=== PATIENT | male | born 1945 | race Caucasian/White ===

== ENCOUNTER 2019-12-04 16:47 | Emergency (ER) | payer MEDICARE, BC, SELFPAY ==
[2019-12-04 16:10] VITALS: O2SAT 90
--- NOTE | 2019-12-04 16:10 | CT_ITS ---
WS: [id number] CT scan of the head, 12/04/2019 Clinical Data: Symptoms of Acute Stroke Comparison: None. DLP: 1668.57 mGy-cm All CT scans at [facility] use at least one of these dose optimization techniques: automat ed exposure control; mA and/or kV adjustment per patient size (includes targeted exams where dose is matched to clinical indication); or iterative reconstruction. Findings: The ventricular system is moderately dilated without shift. There is an old area of encephalomalacia in the left occipital lobe. No recent infarct or hemorrhage is seen. There are no abnormal intracereb ral masses. The cerebellum and brainstem are not remarkable. Bony windows of the skull and skull base show no fractures or erosions. The mastoid air cells, pricing intern al auditory canals, sella turcica, intraorbital contents, and paranasal sinuses are unremarkable. A n asogastric tube is in good position. CT/CT head wo con* [id number] Impression: 1. Moderate cerebral atrophy with small area of encephalomalacia in the left oc cipital lobe. 2. Negative for recent infarct or hemorrhage.
--- NOTE | 2019-12-04 16:11 | ED_ITS ---
Entered by Linda Calderon, acting as scribe for Brissa Grimes HPI - Neuro Symptoms/Deficit General: Chief Complaint: Neuro Symptoms/Deficit Stated Complaint: Unresponsive Source: EMS Mode of arrival: EMS Limitations: altered mental status History of Present Illness: HPI Narrative: 74 yo Male presents to ED with complaint of stroke like symptoms. Pt has left side weakness. Pt was seen on surveillance camera driving at 14:20 today and patient was parked in a parking lot. Pt was found at 15:10. Pt's family states that the patient takes a lot of Aspirin. Pt's family states that she thought the patient has been having TIAs around [place] and he was having slurring on the right side. Dr. Crooks is present with the patient in the CT suite. Onset (ago): hour(s) Last Observed Normal: 14:20 Timing confirmed by: other Location: left face, left arm and left leg History of same: No Quality: weak Relieving factors: none Exacerbating factors: none Context: sudden onset Review of Systems General: Reports: ROS unobtainable due to medical condition Neuro: Denies: weakness in extremities Physical Exam Const: EXAM LIMITATIONS: altered mental status GENERAL APPEARANCE: lethargic ORIENTATION/CONSCIOUSNESS: Yes lethargic HENMT: COMMON NORMALS: normocephalic, head/scalp atraumatic, hearing grossly normal bilaterally, external ears normal, EAC's normal, external nose normal and moist oral mucous membranes HEAD & SCALP: normal to inspection, normocephalic and atraumatic FACE & SINUS: normal facial exam and face symmetric NOSE: external nose normal and nares normal EXTERNAL EAR: Yes external ears normal EXTERNAL AUDITORY CANAL: EAC's normal MOUTH: oral and palatal mucosa normal and tongue normal Eye: SCLERA: sclerae normal CORNEA: Yes corneas normal Neck/C-Spine: COMMON NORMALS: full ROM, no lymphadenopathy, supple and no JVD GENERAL: Yes normal visual inspection and Yes trachea midline CERVICAL SPINE: Yes cervical ROM normal Chest: COMMONS NORMALS: inspection of chest normal and palpation of chest normal Resp: EFFORT & INSPECTION: Yes abnormal respiratory pattern, Yes labored and Yes uses accessory muscles AUSCULTATION: rhonchi Cardio: COMMON NORMALS: no JVD, regular rate, regular rhythm, S1 normal heart sound, S2 normal heart sound, no gallops, no clicks, no murmurs and no rub JUGULAR VENOUS DISTENTION: no JVD RATE: regular rate RHYTHM: regular rhythm HEART SOUNDS: S1 normal and S2 normal GI: COMMON NORMALS: soft to palpation, non-tender, no hepatosplenomegaly and no masses INSPECTION: Yes normal to inspection PALPATION: Yes soft and Yes no hepatosplenomegaly Back/Pelvis: COMMON NORMALS: thoracic and lumbar spine normal to inspection, no thoracic nor lumbar tenderness and thoraco-lumbar ROM normal Extremity: COMMON NORMALS: normal to inspection, full ROM, normal capillary refill, no joint enlargement, no clubbing, cyanosis or edema and no calf tenderness Neuro: SENSORIUM/ORIENTATION: Yes lethargic OTHER: NIH -reported as [address] Crooks Skin: COMMON NORMALS: no rashes or lesions noted, skin turgor normal, no jaundice, no petechiae and no mottling GENERAL SKIN EXAM: no rashes or lesions noted and turgor normal Procedures Intubation sedative: Etomidate Mg Given: 20 paralytic: Succinylcholine Mg Given: 150 Laryngoscope: Maxine ET Tube Size: 8 ET Tube Uncuffed: Yes Tube Secured Depth (cm): 22 Tube Secured Location: lips Tube Placement Confirmation: visualized tube passing through cords, equal breath sounds bilaterally, no breath sounds over epigastrium and confirmation by capnometry Patient Tolerated Procedure: well Intubation Complications: none Additional Comments: Chest x-ray confirms placement. Course Vital Signs: Vital signs: Vital Signs Pulse Rate 55 L 12/04/19 17:39 Respiratory Rate 18 12/04/19 17:39 Blood Pressure 129/87 12/04/19 17:39 Pulse Oximetry 99 12/04/19 17:39 MDM - Neuro Symptoms/Deficit MDM Narrative: Medical decision making narrative: The patient was seen and evaluated by Dr. Crooks almost immediately. She feels the patient's symptoms are secondary to a dense right MCA sign. She discussed and consented for TPA with the family. Once blood pressure was adequately controlled the patient was given TPA. He was intubated to protect his airway as he was having difficulty breathing with sonorous respirations. Patient was transferred by ground ambulance as no air ambulance services were flying. Patient is going to go directly to the interventional radiology suite to see Dr. Sprague and he was the accepting doctor for Dr. Crooks. Lab Data: Labs: Lab Results 12/04/19 12/04/19 12/04/19 Range/Units 16:20 16:20 16:20 WBC 11.2 H (4.0-10.0) 10^3/ uL RBC 5.42 H (4.1-5.3) 10^6/u L Hgb 15.6 (11.7-16.6) g/dL Hct 45.8 (42.0-52.0) % MCV 84.5 (80-94) fL MCH 28.8 (28.0-34.0) pg MCHC 34.1 (30.0-36.0) g/dL RDW 13.8 (12.1-15.1) % Plt Count 204 (130-400) 10^3/c mm MPV 9.2 (7.4-10.4) fL Neut % (Auto) 74.1 % Lymph % (Auto) 18.1 % [place] % (Auto) 6.2 % Eos % (Auto) 0.8 % Baso % (Auto) 0.4 % Neut # (Auto) 8.3 H (1.8-7.7) 10^3/u L Lymph # (Auto) 2.0 (0.8-4.8) 10^3/u L [place] # (Auto) 0.7 (0.2-0.9) 10^3/u L Eos # (Auto) 0.1 (0.0-0.8) 10^3/u L Baso # (Auto) 0.1 (0.0-0.1) 10^3/u L Nucleated RBC % (a uto) 0 % Nucleated RBCs # 0.0 /100WBC PT 13.90 H (10.5-13.3) SECO NDS INR 1.04 (0.8-1.2) APTT 31.0 (23.9-36.7) SECO NDS Sodium 136 (136-145) mmol/L Potassium 3.2 L (3.5-5.1) mmol/L Chloride 97 L (98-107) mmol/L Carbon Dioxide 24 (22-29) mmol/L Anion Gap 18.2 (5-19) BUN 20 (8-23) mg/dL Creatinine 1.0 (0.7-1.2) mg/dL Glucose 306 H (65-115) mg/dL POC Glucose (70-110) mg/dL Calcium 9.4 (8.5-10.5) mg/dL Total Bilirubin 0.6 (0.15-1.2) mg/dL AST 21 (0-40) U/L ALT 21 (0-41) U/L Alkaline Phosphata se 97 (40-130) IU/L Total Protein 7.5 (6.6-8.7) g/dL Albumin 4.1 (3.5-5.2) g/dL Globulin 3.4 (1.3-4.6) g/dL 12/04/19 Range/Units 16:20 WBC (4.0-10.0) 10^3/ uL RBC (4.1-5.3) 10^6/u L Hgb (11.7-16.6) g/dL Hct (42.0-52.0) % MCV (80-94) fL MCH (28.0-34.0) pg MCHC (30.0-36.0) g/dL RDW (12.1-15.1) % Plt Count (130-400) 10^3/c mm MPV (7.4-10.4) fL Neut % (Auto) % Lymph % (Auto) % [place] % (Auto) % Eos % (Auto) % Baso % (Auto) % Neut # (Auto) (1.8-7.7) 10^3/u L Lymph # (Auto) (0.8-4.8) 10^3/u L [place] # (Auto) (0.2-0.9) 10^3/u L Eos # (Auto) (0.0-0.8) 10^3/u L Baso # (Auto) (0.0-0.1) 10^3/u L Nucleated RBC % (a uto) % Nucleated RBCs # /100WBC PT (10.5-13.3) SECO NDS INR (0.8-1.2) APTT (23.9-36.7) SECO NDS Sodium (136-145) mmol/L Potassium (3.5-5.1) mmol/L Chloride (98-107) mmol/L Carbon Dioxide (22-29) mmol/L Anion Gap (5-19) BUN (8-23) mg/dL Creatinine (0.7-1.2) mg/dL Glucose (65-115) mg/dL POC Glucose 283 (70-110) mg/dL Calcium (8.5-10.5) mg/dL Total Bilirubin (0.15-1.2) mg/dL AST (0-40) U/L ALT (0-41) U/L Alkaline Phosphata se (40-130) IU/L Total Protein (6.6-8.7) g/dL Albumin (3.5-5.2) g/dL Globulin (1.3-4.6) g/dL Imaging Data^: CT Head: Radiologist's impression: [place] [address] CT Scan Report Signed Patient: Ryan Howell #: [id number] : 4Acct#:[id number] Age/Sex: 74 / MADM Date: Loc: [facility]/Bed: Attending Dr: Ordering Provider/Ordering MD: Brissa Grimes DO Date of Service: 12/04/19 Procedure(s): CT head wo con* [id number] Accession Number(s): [id number] Report Number: [id number] WS: [id number] CT scan of the head, 12/04/2019 Clinical Data: Symptoms of Acute Stroke Comparison: None. DLP: 1668.57 mGy-cm All CT scans at [facility] use at least one of these dose optimization techniques: automated exposure control; mA and/or kV adjustment per patient size (includes targeted exams where dose is matched to clinical indication); or iterative reconstruction. Findings: The ventricular system is moderately dilated without shift. There is an old area of encephalomalacia in the left occipital lobe. No recent infarct or hemorrhage is seen. There are no abnormal intracerebral masses. The cerebellum and brainstem are not remarkable. Bony windows of the skull and skull base show no fractures or erosions. The mastoid air cells, internal auditory canals, sella turcica, intraorbital contents, and paranasal sinuses are unremarkable. A nasogastric tube is in good position. CT/CT head wo con* [id number] Impression: 1. Moderate cerebral atrophy with small area of encephalomalacia in the left occipital lobe. 2. Negative for recent infarct or hemorrhage. Dictated By:Lyndsey Joseph MD Signed By:Lyndsey Joseph MDSigned Date/Time:12/04/19 1618 DD/ 1614 CXR: Radiologist's impression: [facility] [address] [place] [address] XRay Report Signed Patient: Ryan Howell #: [id number] : 4Acct#:[id number] Age/Sex: 74 / MADM Date: Loc: [facility]/Bed: Attending Dr: Ordering Provider/Ordering MD: Brissa Grimes DO Date of Service: 12/04/19 Procedure(s): XR chest 1V portable [id number] Accession Number(s): [id number] Report Number: [id number] WS: [id number] Portable AP upright chest, 12/04/2019 Clinical Data: cough Comparison: None. Findings: There is a large left effusion. There is left apical thickening. The pulmonary vascularity is increased. There may also be left atelectasis and possible pneumonia. There is an tracheal tube above the marissa. The heart size is probably normal. No pneumothorax is seen. XR/XR chest 1V portable [id number] Impression: 1. Large left pleural effusion with possible atelectasis and pneumonia. 2. Pulmonary vascular congestion. 3. Endotracheal tube above the marissa. Dictated By:Lyndsey Joseph MD Signed By:Lyndsey Joseph MDSigned Date/Time:12/04/19 1641 DD/ 1639 Critical Care Time Critical Care Time: Critical Care Time: Yes Total Critical Care Time: 30 Attestation: Critical care time was exclusive of billable procedures. Critical care time included reviewing of labs, patient examination and reexamination, discussion with family, consultation with neurologist, reviewing old labs and managing patient's medications. 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
--- NOTE | 2019-12-04 16:12 | XR_ITS ---
WS: [id number] Portable AP upright chest, 12/04/2019 Clinical Data: cough Comparison: None. Findings: There is a large left effusion. There is left apical thickening. The pulmonary vascularity is increased. There may also be left atelectasis and possible pneumonia. There is an tracheal tube ab ove the marissa. The heart size is probably normal. No pneumothorax is seen. XR/XR chest 1V portable [id number] Impression: 1. Large left pleural effusion with possible atelectasis and pneumonia. 2. Pulmonary vascular congestion. 3. Endotracheal tube above the marissa.
[2019-12-04] MEDS: labetalol 5 mg/mL SDV 20mL 20 MG IVP (16:24)
[2019-12-04] MEDS: succinylcholine 20 mg/mL SDV 10mL 150 MG IVP (16:28)
[2019-12-04 16:29] LABS: Basophils # 0.1 10^3/uL (0.0-0.1); Basophils % 0.4 %; Eosinophils # 0.1 10^3/uL (0.0-0.8); Eosinophils % 0.8 %; Hematocrit 45.8 % (42.0-52.0); Hemoglobin 15.6 g/dL (11.7-16.6); Lymphocytes % 18.1 %; Mean Corpuscular HGB Conc 34.1 g/dL (30.0-36.0); Mean Corpuscular Hemoglobin 28.8 pg (28.0-34.0); Mean Corpuscular Volume 84.5 fL (80-94); Mean Platelet Volume 9.2 fL (7.4-10.4); Monocytes # 0.7 10^3/uL (0.2-0.9); Monocytes % 6.2 %; Neutrophils # 8.3 10^3/uL (1.8-7.7); Neutrophils % 74.1 %; Nucleated Red Blood Cells % 0 %; Platelet Count 204 10^3/cmm (130-400); Red Blood Count 5.42 10^6/uL (4.1-5.3); Red Cell Distribution Width 13.8 % (12.1-15.1); White Blood Count 11.2 10^3/uL (4.0-10.0)
[2019-12-04] MEDS: LORazepam 2 mg/mL INJ 1 mL 1 MG IVP (16:30)
[2019-12-04 16:35] LABS: Glucose Point of Care 283 mg/dL (70-110)
[2019-12-04] MEDS: propofol 1,000 MG/100 ML INJ 2.2 MG IV (16:35)
[2019-12-04 16:49] VITALS: RESP 14
[2019-12-04 16:55] LABS: INR 1.04 (0.8-1.2)
[2019-12-04 16:56] VITALS: RESP 16
[2019-12-04] MEDS: fentaNYL 50 mcg/mL INJ 2mL 100 MCG IVP (16:56)
[2019-12-04 17:00] LABS: Alanine Aminotransferase 21 U/L (0-41); Albumin Level 4.1 g/dL (3.5-5.2); Alkaline Phosphatase 97 IU/L (40-130); Anion Gap 18.2 (5-19); Aspartate Amino Transferase 21 U/L (0-40); Blood Urea Nitrogen 20 mg/dL (8-23); Calcium 9.4 mg/dL (8.5-10.5); Carbon Dioxide 24 mmol/L (22-29); Chloride 97 mmol/L (98-107); Globulin 3.4 g/dL (1.3-4.6); Glucose 306 mg/dL (65-115); Potassium 3.2 mmol/L (3.5-5.1); Sodium 136 mmol/L (136-145); Total Bilirubin 0.6 mg/dL (0.15-1.2); Total Protein 7.5 g/dL (6.6-8.7)
--- NOTE | 2019-12-04 17:29 | PM.SAN ---
Stroke Alert Activation ED Arrival Date: 12/04/19 ED Arrival Time: 16:06 ED Physican at Bedside: 16:06 Last Known Normal/at Baseline: 1-2 hours ago (1420) Other Last Known Well Infomation: I was called stat for stroke team by the hospital lithographing machine operator at 1533. I called and talked with the triage nurse who spoke with EMS. The patient left his at home at 2:00 and pulled into the [employer] parking lot at 2:20 PM. This was seen on the [employer] cameras covering the parking lot. Someone noticed that he was not moving in his car and called for help and EMS picked him up right around 1530 and left the scene at 1533 and called stroke alert. They arrived at [facility] emergency department at 4:06 PM (1606) and he was taken straight to CAT scan. I was in the CAT scan suite and observed that he had total occlusion of the right middle cerebral artery. I accompanied the patient back to emergency room and participated in weighing him on the way back to his room. A quick neurologic evaluation revealed that the patient had right gaze preference and dense left hemiplegia while he was moving the right side spontaneously. He was too obtunded to determine visual ingram. While the nurses were getting him ready for TPA I talked with his . Trace her at bedside yielded a blood sugar of 250. His blood pressure was 247/[address] Patel administered 20 mg of labetalol and ordered a Cardene drip. The patient was not breathing well and we agreed that he should be intubated and once he was intubated his blood pressure came down. We were able to give the bolus of TPA at 1637. There was no chance of flying him to [place] because of the weather. We plan ground transport for embolectomy. I talked with Dr. Herman Sprague at [facility] who agreed to notify the intervention team that the patient is a candidate. It was my opinion that the patient should be shipped without CTA because his clot in the right middle cerebral artery is gross and consistent with his symptoms. Stroke Alert Activated by: [facility] Stroke Alert Activation Time: 15:33 Stroke MD @ Bedside Time: 16:06 NIH Stroke Scale Time: 16:15 NIH stroke score NIHSS: Level Of Consciousness - 1a: 3 Level Of Consciousness Questions - 1b: Neither Correct Level Of Consciousness Commands - 1c: Neither Correct Best Gaze - 2: Forced Deviation Visual Ingram - 3: Complete Hemianopia Facial Palsy - 4: Partial Paralysis Motor Arm Right - 5: No Drift Motor Arm Left - 5: No Movement Motor Leg Right - 6: No Drift Motor Leg Left - 6: No Movement Limb Ataxia - 7: Absent Sensory - 8: Severe To Total Loss Best Language - 9: Mute; Global Aphasia Dysarthia - 10: Intubated Extinction And Inattention - 11: 2 Score: Total Score: 28 Stroke Alert Data/Treatment Time to CT of Head: 16:06 CT Results Time: 16:10 CT Impression: Dense clot in the right middle cerebral artery Stroke Risk Factors: atrial fibrillation tPA Started Time: tPA Started - Time: 16:37 tPA Admin Prior to Arrival: No Patient & Family Educated on: Cause of Stroke, Risk Factors, Treament Plan, Prognosis, Stroke Education Booklet and tPA Risks/Benefits Other Patient & Family Education: The and daughter were at the bedside and constantly updated Other Information: Transferred to [facility] for embolectomy I was at the bedside from 1606 through 1645 Critical Care Time Critical Care Time: 30 - 74 mins Coding Level of Care Code Acute Business Strategy Manager for Sweta Correa
[2019-12-04 17:39] VITALS: BP 129/87; PULSE 55; RESP 18; O2SAT 99
--- NOTE | 2019-12-04 17:42 | PC.NURSE ---
TPA bolus given at 1635. 15 minute neuro checks performed with no change in neurological status. NIH remained at 30.
== END 2019-12-04 17:05 | disposition short-term general hospital (02) ==
LOC: ER 17:09
PROVIDERS: Emergency Provider Emergency Medicine; Family Provider Family Medicine
DX: I63.411 Cerebral infarction due to embolism of right middle cerebral artery (principal); R53.1 Weakness
CPT/HCPCS: 12345; 31500; 36415; 36416; 70450; 71045; 80053; 82962; 85025; 85610; 85730; 94002; 94799; 96365; 96366; 96368; 96375; 99283; 99291; J0330; J2060; J2704; J2997; J3010; J3490; J7050